=== PATIENT | female | born 1940 | race Caucasian/White ===

== ENCOUNTER → 2017-07-17 | Outpatient (CLI) | payer MEDICARE ==
[~2017-07-17] MED LIST: AMLO5TAB2 PO; FISH1CAP63 PO; GLUC15006 PO; IOPAMIDOL-370 75 ML VIAL IV ONE; LEVO75TA10 PO; LOVA40TA2 PO; MAGN400T40 PO; VIT1CAPS5 PO; VITA150T PO
== END ==
LOC: RAH 08:52
PROVIDERS: ATTEND Physician Assistant Medical
DX: D25.9 Leiomyoma of uterus, unspecified (principal); K83.8 Other specified diseases of biliary tract
CPT/HCPCS: 74178; Q9967